=== PATIENT | female | born 1975 | race Caucasian/White ===

== ENCOUNTER 2017-12-09 08:42 | Outpatient (CLI) | payer BC ==
[2017-12-09] MEDS ORDERED: BARIUM SULFATE 135 ML SUSP.RECON (E-Z-HD) PO ONE (08:53)
== END 2017-12-09 20:01 | disposition home or self-care (01) ==
LOC: SRD 08:42
PROVIDERS: ATTEND Otolaryngology
DX: K21.9 Gastro-esophageal reflux disease without esophagitis (principal); K44.9 Diaphragmatic hernia without obstruction or gangrene
CPT/HCPCS: 74220-TC

== ENCOUNTER 2019-11-11 07:38 | Emergency (ER) | payer BC ==
[~2019-11-11] VITALS: Ht 162.6 cm; Wt 82.6 kg
[2019-11-11 07:57] VITALS: BP_SYST 124
[2019-11-11] MEDS ORDERED: IBUP-1816 PO (07:57)
[2019-11-11] MEDS ORDERED: BUDE0.25 INH (07:57)
--- NOTE | 2019-11-11 08:07 | NUR ---
Patient to ER bed 8 to gown for evaluation. Side rails up.
--- NOTE | 2019-11-11 08:08 | NUR ---
PATIENT PRESENTS TO THE ER WITH THREE HOUR HX OF LEFT SHOULDER PAIN; NO TRAUMA, NO OTHER REMARKABLE S/S; TO ER #8 AT 0750 AND ERMD EVALUATION AT 0800
[2019-11-11] MEDS ORDERED: ONDANSETRON 4 MG ODT TAB PO ONE (08:15)
[2019-11-11] MEDS ORDERED: MORPHINE 4 MG/ML INJ. SYRINGE IM ONE (08:15)
[2019-11-11] MEDS ORDERED: KETOROLAC TROMETHAMINE 60 MG/2 ML VIAL IM ONE (08:15)
--- NOTE | 2019-11-11 08:30 | NUR ---
Patient presents to ER C/O left shoulder pain. Patient A&Ox4, ambulatory to ER, afebrile, skin pink and warm, pain 7/10, denies N/V/D. Patient denies injury/trauma, patient states pain has been intermittent x4 days.
[2019-11-11] MEDS ORDERED: MORPHINE 2 MG/ML INJ. SYRINGE ONE (08:47)
--- NOTE | 2019-11-11 09:01 | NUR ---
DR KEVIN AT BEDSIDE SPEAKING WITH PT ABOUT CARE
--- NOTE | 2019-11-11 10:10 | NUR ---
Patient given written and verbal discharge instructions and verbalizes understanding. ER MD discussed with patient the results and treatment provided. Patient in stable condition. ID arm band removed. Rx of NORCO & MOTRIN given. Patient educated on pain management and to follow up with PMD. Pain Scale 3/10 tolerable for PT. Opportunity for questions provided and answered. Medication side effect fact sheet provided.
[2019-11-11 10:35] VITALS: BP_SYST 125
== END 2019-11-11 10:10 | disposition home or self-care (01) ==
LOC: SED 07:38
DX: M25.512 Pain in left shoulder (principal)
CPT/HCPCS: 71046; 73030; 96372; 99284; J1885; J2270; Q0162